=== PATIENT | male | born 1945 | race Caucasian/White ===

== ENCOUNTER 2017-09-10 14:03 | Outpatient (CLI) | payer MEDICARE ==
--- NOTE | 2017-09-10 16:47 | CT ---
CT ABDOMEN AND PELVIS WITH AND WITHOUT IV CONTRAST: History: Abdominal pain. Renal stone. FINDINGS: Each renal collecting system, ureter, and urinary bladder are decompressed. The largest calcification in a nondilated leah at the inferior pole of the left kidney measures up to 1.1 cm greatest diamete r on the axial images. A 0.3 cm calculus is present at the superior pole. No stones are evident on th e right. Hyperdense stones are apparent within the gallbladder lumen. There is calcification within the arteri al structures. Diverticula arise from the colon without adjacent inflammation. Metallic seeds at the prostate gland have the appearance of prior brachytherapy. IMPRESSION: 1. Nonobstructing left renal calculi measuring up to 1.1 cm greatest diameter on the axial images of today's exam. 2. Cholelithiasis. 3. Hepatosteatosis. 4. Diverticulosis. No evidence of diverticulitis. POS: [facility]
== END 2017-09-10 14:04 | disposition home or self-care (01) ==
LOC: SCSCT 14:03
PROVIDERS: ATTEND Urology
DX: C61 Malignant neoplasm of prostate (principal); N20.0 Calculus of kidney; R35.0 Frequency of micturition; K80.20 Calculus of gallbladder without cholecystitis without obstruction; K76.0 Fatty (change of) liver, not elsewhere classified; K57.30 Diverticulosis of large intestine without perforation or abscess without bleeding
CPT/HCPCS: 36415; 74178; 80048; 81001; 84153; 87086

== ENCOUNTER 2017-12-01 14:10 | Outpatient (CLI) | payer MEDICARE ==
--- NOTE | 2017-12-01 14:51 | RAD ---
SUPINE ABDOMEN: HISTORY: Malignant neoplasm of prostate. COMPARISON: Comparison is made to a supine abdominal film from 2014. FINDINGS: Calcification overlying the lower pole of the left kidney is again seen, slightly larger today measur ing up to 1.7 cm. There is at least one other small calcification overlying the mid pole of the left kidney which is better defined on recent CT of 09/10/17. Implants at the prostate again noted. Bowel gas pattern unremarkable. Osseous structures unremarkab le with mild degenerative changes at the hips. IMPRESSION: Left renal calcifications again noted. POS: [facility]
== END 2017-12-01 14:11 | disposition home or self-care (01) ==
LOC: RAD 14:10
PROVIDERS: ATTEND Urology
DX: C61 Malignant neoplasm of prostate (principal); N28.89 Other specified disorders of kidney and ureter
CPT/HCPCS: 74018

== ENCOUNTER 2018-01-14 10:57 | Outpatient (CLI) | payer MEDICARE ==
[2018-01-14 12:18] LABS: Hemoglobin 14.2 g/dL (14.0-18.0); Mean Corpuscular Hemoglobin 36.8 pg (27.0-31.0); Mean Platelet Volume 6.7 fL (7.4-10.4); Platelet Count 149 thou/uL (130-400); Red Blood Cell (RBC) Count 3.86 mill/uL (4.70-6.10); White Blood Cell (WBC) Count 4.5 thou/uL (4.8-10.8)
[2018-01-14 12:19] LABS: Bacteria/HPF None Seen HPF (None Seen); Hyaline Casts/LPF 0-3 HYALINE CAST LPF (0-3 Hyaline); Pathc Cast-AUWi Flag 0.14 (0-2.49); Squamous Epithelial 0-3 HPF (0-3); WBC/HPF 0-3 HPF (0-3)
[2018-01-14 12:30] LABS: INR-International Normal Ratio 0.9; PTT 27.5 SEC (22.9-36.1); Prothrombin Time 12.7 SEC (12.0-14.7)
[2018-01-14 12:39] LABS: Anion Gap 12 mmol/L (10-20); BUN (Urea Nitrogen) 24 mg/dL (8.4-25.7); Calc. Creatinine Clearance 0 mL/min (70-130); Calcium 9.1 mg/dL (7.8-10.44); Carbon Dioxide 24 mmol/L (23-31); Chloride 103 mmol/L (98-107); Estimated GFR-MDRD 47; Glucose 82 mg/dL (83-110); Potassium 3.4 mmol/L (3.5-5.1); Sodium 136 mmol/L (136-145)
--- NOTE | 2018-01-14 20:28 | EKG ---
Test Reason : Blood Pressure : / mmHG Vent. Rate : 057 BPM Atrial Rate : 057 BPM P-R Int : 152 ms QRS Dur : 090 ms QT Int : 460 ms P-R-T Axes : 057 012 014 degrees QTc Int : 447 ms Sinus bradycardia Otherwise normal ECG No previous ECGs available Confirmed by ROHIT KNUTSON (2) on 01/14/2018 8:27:51 PM Referred By: RENARD Confirmed By:ROHIT KNUTSON
[2018-01-15 14:59] LABS: Bilirubin Negative (Negative); Blood, Urine Negative (Negative); Clarity Cloudy (Clear); Glucose, Urine (Dipstick) Negative (Negative); Leukocyte Negative (Negative); Nitrite Negative (Negative); Protein, Urine (Dipstick) Trace mg/dL (Neg-Trace); Specific Gravity, Urine 1.023 (1.002-1.036); Urobilinogen 0.2 mg/dL (0.2-1.0); pH, Urine 5.5 (5.0-9.0)
== END 2018-01-14 10:58 | disposition home or self-care (01) ==
LOC: LABBT 10:57
PROVIDERS: ATTEND Urology
DX: Z01.818 Encounter for other preprocedural examination (principal); N20.0 Calculus of kidney; R00.1 Bradycardia, unspecified
CPT/HCPCS: 80048; 81015; 85027; 85610; 85730; 87086; 93005; 93010

== ENCOUNTER 2018-01-21 06:16 | Day surgery (SDC) | payer MEDICARE ==
[2018-01-14 11:16] VITALS: BMI 25.2
[2018-01-21] MEDS ORDERED: Fentanyl 100 MCG/2 ML VIAL ONE (06:37)
[2018-01-21] MEDS ORDERED: Levofloxacin 500 mg/D5W 100 ml Premix Bag ONE (06:46)
[2018-01-21] MEDS ORDERED: Iothalamate Meglumine 60% 50 ML VIAL FS ONE (07:24)
--- NOTE | 2018-01-21 08:28 | RAD ---
ABDOMEN 1 VIEW: HISTORY: A 72-year-old male for preoperative evaluation. COMPARISON: 12/01/17. FINDINGS: Stable 0.8 x 1.6 cm diameter left renal calculus with additional very much smaller left renal calculu s. No evidence for obstructing ureteral calculus. IMPRESSION: Stable left renal calculi. POS: [facility]
[2018-01-21] MEDS ORDERED: Phenazopyridine HCl 97.5 MG TABLET ONE ×2 (10:17)
[2018-01-21] MEDS ORDERED: Oxybutynin 5 MG TAB ONE (10:18)
--- NOTE | 2018-01-21 10:24 | OP ---
DATE OF SERVICE: 01/21/2018 PREOPERATIVE DIAGNOSES: 1. A 72-year-old male with history of left lower pole renal stone measuring 1.8 cm x 8 mm. 2. Left mid to upper pole 2-3 mm renal calculi. 3. History of prostate cancer, status post brachytherapy with PSA deo. POSTOPERATIVE DIAGNOSES: 1. A 72-year-old male with history of left lower pole renal stone measuring 1.8 cm x 8 mm. 2. Left mid to upper pole 2-3 mm renal calculi. 3. History of prostate cancer, status post brachytherapy with PSA deo. PROCEDURES: Cystoscopy, left retrograde pyelogram, balloon dilation of left distal ureter, flexible ureteroscopy, pyeloscopy, laser lithotripsy of large left lower pole stone. SURGEON: Jodi Alvarenga D.O. ANESTHESIA: General. COMPLICATIONS: None apparent. DISPOSITION: To recovery room in stable condition. SPECIMEN: None. Intraoperative findings: No evidence of significant outlet obstruction, radiation cystitis changes, large left lower pole renal stone INDICATIONS FOR THE PROCEDURE AND HISTORY: Mr. Álvarez is a 72-year-old male who presented to my office back in 07/2017 to establish urologic care. The patient with history of prostate cancer. Initial stage unknown, diagnosed in [facility] status post brachytherapy in 2004. No real concerns regarding his prostate cancer as his PSA is deo. I did discuss with the patient regarding incidental findings that he presented with a large left lower pole stone measuring 1.8 x 8 mm. The density of the stone is over 1300. I discussed with patient regarding options of surgery including ESWL, ureteroscopy, percutaneous nephrolithotomy. Risks and complications of each modality, relative stone free rates were reviewed. He desired to proceed with ureteroscopy and laser lithotripsy. He has been fully informed regarding possible secondary procedure given stone nidus, location, and density. He desires to proceed. DESCRIPTION OF THE PROCEDURE: After an informed consent is signed, patient is taken to the operating room, placed in a dorsal lithotomy position with the genital area prepped and draped in the usual surgical sterile fashion. A 21- Yemeni cystoscope was utilized for cystoscopy. Prior to the procedure, bilateral ANDREI hose, SCDs, and broad-spectrum antibiotics were provided. There was no evidence of urethral stricture. The prostatic urethra demonstrated coapting lateral lobes with no significant obstruction. The supraverumontanal length was approximately 2.5-3 cm. The bladder was entered which demonstrated changes with radiation cystitis. He did have some prominent vascularity; however, no active bleeding was noted. The UO's are identified in normal anatomical location with bilateral clear efflux of urine. We performed a retrograde pyelogram using a 5 Yemeni open-ended catheter with 1:1 diluted contrast which demonstrated no evidence of hydronephrosis. A large left lower pole stone was seen with infundibular angle approximately 45 degrees. No filling defect was appreciated. A 0.35 sensor wire was placed in the left upper pole. We dilated the intramural ureter with a [employer] balloon dilator 12 Yemeni 4 cm. Pressure was held for 2 minutes. At this time, we then passed a 10 Yemeni dual-lumen access sheath to the level of the proximal ureter. A second safety wire, a 0.35 Super Stiff wire was then placed. We secured the sensor wire and using the Super Stiff wire, a 11 x 13 Yemeni x 46 cm navigator was able to be passed to the level of the mid to proximal ureter. We then advanced a flexible ureteroscope under direct visualization. We surveyed the collecting system demonstrating the large stone in the left lower pole, had multiple sick trabeculations. Behind the large lower pole stone was further two smaller stones approximately 6-8 mm in size. Using a 200 micron laser fiber, we laser lithotripsied the stone. I was unable to engage the stone with 365 micron laser fiber due to infundibular angle. Using dust setting , we dusted the stone into multiple tiny pieces. It took some time to laser lithotripsy the stone due to very large nature and density of the stone. At the end of the procedure, what remained were minute stone fragments. I did not basket any stone fragments as we dusted the stone as much as we could. I surveyed the collecting system which demonstrated multiple sedimentous debris. There was no other big stone nidus amendable to stone treatment. After appropriate treatment and fluoroscopy demonstrated no obvious stone debris of concern, we negotiated the flexible ureteroscope distally under direct visualization. There was no evidence of ureteral stone nidus or obvious trauma. A 6 x 28 double-J ureteral stent was passed over the sensor wire and all wires were then subsequently removed. Bladder was completely emptied and he tolerated the procedure well. He is discharged with Bronte 5/325 #50 one to two p.o. q.6-8 hours p.r.n., ciprofloxacin for 5 days, then one prior to his appointment for possible cystoscopy stent pull, AZO p.r.n., Myrbetriq 50 mg 1 p.o. daily, Flomax #20 one p.o. daily, Colace 1 p.o. b.i.d. He will follow up with me on 02/05/2018 at 8:15. A CT will be ordered on the patient's behalf the day before. Given the large stone nidus, offered for CT for staging prior to cystoscopy stent pull to rule out steinstrasse of concern. The patient will be encouraged to increase his water consumption. MTDD
--- NOTE | 2018-01-21 10:30 | RAD ---
RETROGRADE PYELOGRAM: DATE: 01/21/18. HISTORY: Left-sided renal stone. FINDINGS: Three images are provided. The initial image demonstrates a calcification projecting just superior t o the left 12th rib, likely on the basis of an intrarenal calculus. The 2nd image demonstrates contr ast media within the left renal collecting system. The 3rd image demonstrates placement of a double- J ureteral stent on the left. The left renal stone seen on the initial image is not present on the f inal image. IMPRESSION: Removal of left renal calculus with placement of left double J ureteral stent. POS: [facility]
== END 2018-01-21 12:25 | disposition home or self-care (01) ==
LOC: SDC 06:16
PROVIDERS: ATTEND Urology
PROC: 0TF48ZZ Fragmentation in Left Kidney Pelvis, Via Natural or Artificial Opening Endoscopic (ICD-10-PCS; principal; 2018-01-21)
PROC: 0T778DZ Dilation of Left Ureter with Intraluminal Device, Via Natural or Artificial Opening Endoscopic (ICD-10-PCS; 2018-01-21)
DX: N20.0 Calculus of kidney (principal); I10 Essential (primary) hypertension; R35.0 Frequency of micturition; Z88.2 Allergy status to sulfonamides; Z85.46 Personal history of malignant neoplasm of prostate; Z92.3 Personal history of irradiation; Z79.899 Other long term (current) drug therapy
CPT/HCPCS: 52356; 74018; 74420; C1758; C1769; J0131; J1956; J3010; Q9961

== ENCOUNTER 2018-02-04 08:27 | Outpatient (CLI) | payer MEDICARE ==
--- NOTE | 2018-02-04 11:27 | CT ---
CT OF ABDOMEN AND PELVIS PERFORMED WITHOUT CONTRAST ENHANCEMENT: Date: 02/04/18 HISTORY: Renal calculi. COMPARISON: 09/10/17 study. FINDINGS: The lung bases are clear of infiltrative process. The liver, spleen, and pancreas regions are unremarkable. There is some subtle increased attenuation within the gallbladder, most compatible with some probable stones. Ultrasound would be needed for def inite confirmation. Right and left adrenal glands are normal in appearance. A left ureteral stent is in place and in good position. There is no evidence of obstruction and I see no evidence of any urete ral calculus on the left. There are some punctate renal calculi. This includes a 4.0 mm upper pole le ft renal calculus and several small punctate lower pole calculi. The lower pole calculi may represent some residual fragments related to the larger 10.0 mm renal pelvis calculus that was noted on the pr evious examination. There is a single punctate lower pole right renal calculus present. There is no s ignificant periaortic or mesenteric adenopathy. CT of pelvis was performed without contrast enhancement. There is sigmoid diverticulosis noted. Posto perative changes in the prostate are seen with prostate seeds. Bladder wall thickening is probably on the basis of some outlet obstruction. IMPRESSION: 1. Patient has undergone apparent lithotripsy of large left renal calculus. There are what appear to be some small fragments in the lower pole of the left kidney. Upper pole left renal calculus and non obstructing punctate lower pole right renal calculus are also visualized. 2. Sigmoid diverticulosis. POS: [facility]
== END 2018-02-04 08:28 | disposition home or self-care (01) ==
LOC: SCSCT 08:27
PROVIDERS: ATTEND Urology
DX: N20.0 Calculus of kidney (principal); K57.30 Diverticulosis of large intestine without perforation or abscess without bleeding; Z98.890 Other specified postprocedural states
CPT/HCPCS: 74176

== ENCOUNTER 2018-08-10 10:15 | Outpatient (CLI) | payer MEDICARE ==
--- NOTE | 2018-08-10 16:01 | ULT ---
RENAL ULTRASOUND: DATE: 08/10/2018. COMPARISON: None available. HISTORY: Renal calculi. TECHNIQUE: Multiplanar, kim scale sonographic imaging of the kidneys and urinary bladder. FINDINGS: Right kidney measures 10.4 x 5.0 x 5.2 cm. No discrete renal mass, hydronephrosis, or discrete renal stone noted on the right. The urinary bladder appears grossly unremarkable. The left kidney measures approximately 9.4 x 5.6 x 4.6 cm. No discrete stone, hydronephrosis, or mas s lesion. IMPRESSION: Unremarkable renal ultrasound. Evaluation for renal stone disease could be better performed via KUB or CT. POS: [facility]
--- NOTE | 2018-08-10 16:02 | RAD ---
KUB: 08/10/2018 HISTORY: Stone removal last week. History of prostate cancer. COMPARISON: None. FINDINGS: Radiation therapy beads overly the pubic symphysis, in the expected location of the prostate gland. The stone in the left upper quadrant overlying the 12th rib, seen on the prior examination, is no elise karin visualized. There is a 2-3 mm calcification overlying the 12th rib on the left, which may represent a tiny residu al left renal stone. No calcification noted in the right upper quadrant. The bowel gas pattern appe ars nonobstructed. Multilevel lower lumbar spine degenerative change is present. Calcification in the left hemipelvis suggests atherosclerotic disease. IMPRESSION: Punctate calcification in the left upper quadrant suggests a tiny left renal stone in the 2-3 mm rang e. POS: [facility]
== END 2018-08-10 10:16 | disposition home or self-care (01) ==
LOC: SCSULT 10:15
PROVIDERS: ATTEND Urology
DX: N20.0 Calculus of kidney (principal); R35.0 Frequency of micturition; R19.8 Other specified symptoms and signs involving the digestive system and abdomen
CPT/HCPCS: 74018; 76770

== ENCOUNTER 2018-12-17 10:24 | Outpatient (CLI) | payer MEDICARE ==
--- NOTE | 2018-12-17 10:48 | CT ---
CT Brain WO Con: 12/17/2018 12:00 AM CLINICAL HISTORY: History of subdural hemorrhage. COMPARISON: 06/01/[address] is referenced FINDINGS: Hemorrhage: Subacute, diffuse left subdural hematoma with overlying left frontal ulke hole is present , with maximum width approximately 1 cm. There is a slight degree of associated sulcal effacement of the left convexity. Ventricular system: Normal in size and morphology for the patient's age. Cerebral parenchyma: Microvascular ischemic disease Midline shift: 5 mm rightward subfalcine herniation. Mass: Mild left cerebral sulcal effacement, as above Calvarium: Left frontal luke hole. Visualized Paranasal sinuses: Scattered mild inflammatory mucosal prominence. IMPRESSION: Subacute left subdural hematoma with mild rightward subfalcine herniation and mild sulcal effacement. Recommend follow-up to resolution.
== END 2018-12-17 10:25 | disposition home or self-care (01) ==
LOC: TBSIIMAG 10:24
PROVIDERS: ATTEND Neurological Surgery
DX: I62.02 Nontraumatic subacute subdural hemorrhage (principal); G93.5 Compression of brain
CPT/HCPCS: 70450

== ENCOUNTER 2019-01-14 09:08 | Outpatient (CLI) | payer MEDICARE ==
--- NOTE | 2019-01-14 10:05 | CT ---
EXAM: CT brain without contrast HISTORY: Intracranial hemorrhage COMPARISON: 12/17/2018 TECHNIQUE: Multiple contiguous axial images were obtained and a CT of the brain without contrast. FINDINGS: The brain is normal in morphology and attenuation without focal lesions or confluent areas of infarction. A left-sided luke hole is seen in the frontal region. There is an extra-axial fluid collection along the left frontal and parietal convexities with both low and high density consistent with a chronic subdural hematoma. This measures 8 mm in greatest thickness. No significant midline shift or downward herniation is seen at this time. There is no evidence of hydrocephalus. The calvarium and overlying soft tissues are unremarkable. The visualized paranasal sinuses and masto id air cells are well aerated. IMPRESSION: Chronic left subdural hematoma
== END 2019-01-14 09:09 | disposition home or self-care (01) ==
LOC: TBSIIMAG 09:08
PROVIDERS: ATTEND Neurological Surgery
DX: I62.03 Nontraumatic chronic subdural hemorrhage (principal)
CPT/HCPCS: 70450

== ENCOUNTER 2019-02-25 10:08 | Outpatient (CLI) | payer MEDICARE ==
--- NOTE | 2019-02-25 10:39 | CT ---
EXAM: CT brain without contrast HISTORY: History of subdural hemorrhage. COMPARISON: 01/14/2019 TECHNIQUE: Multiple contiguous axial images were obtained and a CT of the brain without contrast. FINDINGS: The brain parenchyma is normal in morphology and attenuation without focal lesions or confl uent areas of infarction. There is a smaller left frontal/parietal subdural fluid collection measuring 6 mm in greatest dimension. This likely represents a resorbing subdural hematoma. A luke hole is seen in the frontal left calvarium.. The visualized paranasal sinuses and mastoid air cells are well aerated. IMPRESSION: Decreased size of left subdural hematoma.
== END 2019-02-25 10:09 | disposition home or self-care (01) ==
LOC: TBSIIMAG 10:08
PROVIDERS: ATTEND Neurological Surgery
DX: I62.03 Nontraumatic chronic subdural hemorrhage (principal)
CPT/HCPCS: 70450

== ENCOUNTER 2019-09-24 08:21 | Outpatient (CLI) | payer MEDICARE ==
[2019-09-24 11:34] LABS: Anion Gap 14 mmol/L (10-20); BUN (Urea Nitrogen) 21 mg/dL (8.4-25.7); Calc. Creatinine Clearance 0 mL/min (70-130); Calcium 9.2 mg/dL (7.8-10.44); Carbon Dioxide 27 mmol/L (23-31); Chloride 105 mmol/L (98-107); Estimated GFR-MDRD 51; Glucose 98 mg/dL (83-110); Potassium 3.8 mmol/L (3.5-5.1); Sodium 142 mmol/L (136-145)
--- NOTE | 2019-09-27 18:56 | EKG ---
Test Reason : Blood Pressure : / mmHG Vent. Rate : 077 BPM Atrial Rate : 077 BPM P-R Int : 156 ms QRS Dur : 096 ms QT Int : 424 ms P-R-T Axes : 055 012 015 degrees QTc Int : 479 ms Normal sinus rhythm Normal ECG When compared with ECG of 14-JAN-2018 11:39, No significant change was found Confirmed by SHIN CAPPS, SStiven ([id number]) on 09/27/2019 6:56:25 PM Referred By: TOMMIE Confirmed By:DR. Terrance MELISSA MD
== END 2019-09-24 08:22 | disposition home or self-care (01) ==
LOC: LABBT 08:21
PROVIDERS: ATTEND Neurological Surgery
DX: Z01.818 Encounter for other preprocedural examination (principal); M48.061 Spinal stenosis, lumbar region without neurogenic claudication
CPT/HCPCS: 80048; 93005; 93010

== ENCOUNTER 2019-09-29 06:53 | Day surgery (SDC) | payer MEDICARE ==
[2019-09-24 10:35] VITALS: BMI 25.8
--- NOTE | 2019-09-29 07:21 | HP ---
HISTORY OF PRESENT ILLNESS: Mr. Álvarez is here today to discuss several years of progressive low back pain, which is associated with significant neurogenic claudication as well as a left lower extremity L5 pattern of radiating pains with numbness. We actually discussed this last year during a followup for his subdural hematoma. He hopes at this point to start about surgically treating his pain now. In the past he has treated this with exercises and activity modification and then more recently had 2 lumbar epidural steroid injections, the first of which helped tremendously, the second of which was in July which did not help at all. PHYSICAL EXAMINATION: GENERAL: He is alert and oriented x3. Gait is slow and stooped. LOWER EXTREMITIES: Motor exam is normal. He does have a positive right straight leg raise, negative on the left. PAST MEDICAL HISTORY: Significant for hypertension, history of prostate cancer, diverticulosis, depression, hypercholesterolemia. PAST SURGICAL HISTORY: Tonsillectomy and adenoidectomy. CURRENT MEDICATIONS: 1. Zyrtec. 2. Fluoxetine. 3. Alprazolam. 4. Diovan. 5. Lipitor. 6. Vitamin D. 7. Allopurinol. 8. Flomax. 9. Tramadol. ALLERGIES: TO SULFA DRUGS. ASSESSMENT: Lumbar spinal stenosis. PLAN: Dr. Schumacher met with the patient, reviewed imaging, advocated for an L3-L5 decompression. He explained to the patient the risks, benefits, and alternatives to the procedure. The patient expressed understanding and elected to move forward with surgery as discussed. I do believe the patient and the family are capable of making medical decisions for himself. We will move forward with surgery as planned. Job ID: [id number]
[2019-09-29] MEDS ORDERED: Bupivacaine PF 0.5% 30 ML VIAL ONE (07:55)
[2019-09-29] MEDS ORDERED: Thrombin 5000 UNITS/5 ML VIAL ONE (07:55)
[2019-09-29] MEDS ORDERED: Fentanyl 100 MCG/2 ML VIAL ONE (08:52)
[2019-09-29] MEDS ORDERED: HYDROmorphone 0.5 MG/0.5 ML SYRINGE ONE (08:59)
[2019-09-29] MEDS ORDERED: Glycopyrrolate 0.2 MG/ML 5 ML SYRINGE ONE (09:23)
[2019-09-29] MEDS ORDERED: PROPOFOL 200 MG/20 ML VIAL ONE (09:23)
[2019-09-29] MEDS ORDERED: Ondansetron PF 4 MG/2 ML Vial ONE (09:23)
[2019-09-29] MEDS ORDERED: ePHEDrine/0.9% NaCl/PF SYRINGE 50 mg/10 ml ONE (09:23)
[2019-09-29] MEDS ORDERED: Lidocaine 1% PF 5 ML VIAL ONE (09:23)
[2019-09-29] MEDS ORDERED: Rocuronium Bromide 10 MG/ML (10ML VIAL) ONE (09:23)
[2019-09-29] MEDS ORDERED: Tamsulosin HCl 0.4 MG CAP ONE (11:11)
[2019-09-29] MEDS ORDERED: Acetaminophen/Codeine 30-300mg Tablet ONE (12:05)
--- NOTE | 2019-09-29 16:23 | OP ---
DATE OF PROCEDURE: 09/29/2019 TOLL RELIEF OPERATOR: Raymond Vargas PA-C INDICATION: Pain. DIAGNOSIS: Lumbar stenosis. PROCEDURES PERFORMED: L3 through L5 lumbar decompression. ANESTHESIA: General. DESCRIPTION OF PROCEDURE: The patient was brought to the operating room and placed under general anesthesia. He was flipped from the supine to prone position on the operating room table. A linear incision was planned spanning L3 through L5. After prepping and draping and after an appropriate operative pause, the incision was created. The soft tissues were swept away from midline. A self-retaining retractor was placed. After confirming the appropriate level with C-arm fluoroscopy, the spinous process of L4, superior half of L5, and inferior aspect of L3 were removed. A high-speed cutting drill bit as well as 2, 3, and 4 mm Kerrisons were used to complete the laminectomy. The laminectomy was extended laterally to encompass the medial aspect of the facet joint. After decompressing the central canal and the lateral recesses, the wound was irrigated. Hemostasis was maintained throughout. The wound was then closed in anatomic layers and a pressure dressing was applied. There were no known procedural complications. Job ID: [id number]
== END 2019-09-29 15:20 | disposition home or self-care (01) ==
LOC: SDC 06:53
PROVIDERS: ATTEND Neurological Surgery
PROC: 0SB20ZZ Excision of Lumbar Vertebral Disc, Open Approach (ICD-10-PCS; principal; 2019-09-29)
DX: M48.062 Spinal stenosis, lumbar region with neurogenic claudication (principal); M54.16 Radiculopathy, lumbar region; I10 Essential (primary) hypertension; E78.00 Pure hypercholesterolemia, unspecified; F32.9 Major depressive disorder, single episode, unspecified; Z79.899 Other long term (current) drug therapy; Z88.2 Allergy status to sulfonamides
CPT/HCPCS: 76000; J0690; J1170; J2001; J2405; J2704; J3010; S0020